=== PATIENT | female | born 1960 | race Two or more races ===

== ENCOUNTER 2024-03-26 04:42 | Emergency (ER) | payer OTHER ==
[~2024-03-26] VITALS: Ht 160 cm; Wt 95.3 kg
[2024-03-26 05:38] LABS: BASOPHILS # (AUTO) 0.2 K/uL (0.0-0.2); BASOPHILS % (AUTO) 1.3 % (0.0-2.0); EOSINOPHILS # (AUTO) 0.3 K/uL (0.0-0.7); HEMATOCRIT 41 % (33-45); HEMOGLOBIN 13.9 g/dL (11.5-14.8); LYMPHOCYTES # (AUTO) 2.5 K/uL (0.8-4.8); LYMPHOCYTES % (AUTO) 19.2 % (20.0-44.0); MEAN CORPUSCULAR HEMOGLOBIN 30 PG (26.0-33.0); MEAN CORPUSCULAR HGB CONC 34 g/dl (31.0-36.0); MEAN CORPUSCULAR VOLUME 89 fL (82-100); NEUTROPHILS # (AUTO) 8.9 K/uL (1.8-8.9); NEUTROPHILS % (AUTO) 69.5 % (43.0-81.0); PLATELET COUNT (AUTO) 231 K/uL (150-450); RED BLOOD CELL COUNT(AUTO) 4.56 MIL/uL (4.0-5.2); RED CELL DISTRIBUTION WIDTH 13.4 % (11.5-15.0); WHITE BLOOD COUNT (AUTO) 12.8 K/uL (4.3-11.0)
[2024-03-26 05:42] VITALS: O2SAT 95
[2024-03-26] MEDS: ALBUTEROL FS 2.5 MG/0.5 ML VIAL.NEB NEB ONE (05:42)
[2024-03-26] MEDS ORDERED: ALBUTEROL FS 2.5 MG/3 ML VIAL.NEB ONE ×2 (05:51→07:08)
[2024-03-26 05:52] LABS: CREATININE 0.9 mg/dL (0.6-1.3)
[2024-03-26 05:57] VITALS: O2SAT 98
[2024-03-26 06:04] LABS: LACTIC ACID 1.8 mmol/L (0.4-2.0)
[2024-03-26 06:06] LABS: CALCIUM, SERUM 8.5 mg/dL (8.5-10.1)
[2024-03-26] MEDS: methylPREDNISolone SOD SUCC 125 MG/2ML VIAL IV ONE (06:55)
[2024-03-26] MEDS ORDERED: methylPREDNISolone SOD SUCC 125 MG/2ML VIAL ONE (06:57)
[2024-03-26] MEDS ORDERED: IPRATROPIUM NEB FS 0.5 MG/2.5 ML AMPUL.NEB ONE (07:08)
[2024-03-26 07:13] VITALS: O2SAT 95
[2024-03-26] MEDS: IPRATROPIUM NEB FS 0.5 MG/2.5 ML AMPUL.NEB NEB ONE (07:13)
[2024-03-26] MEDS: ALBUTEROL FS 2.5 MG/3 ML VIAL.NEB CONTNEB ONE (07:13)
[2024-03-26 08:13] VITALS: O2SAT 94
[2024-03-26] MEDS ORDERED: IBUP-1955 PO (09:09)
[2024-03-26] MEDS ORDERED: BENZ-13 PO (09:09)
[2024-03-26 10:55] VITALS: BP 137/68; TEMP 98.4; O2SAT 98
== END 2024-03-26 10:56 | disposition home or self-care (01) ==
LOC: ER 05:10
DX: J45.901 Unspecified asthma with (acute) exacerbation (principal); I10 Essential (primary) hypertension; J06.9 Acute upper respiratory infection, unspecified; R05.9 Cough, unspecified; E11.9 Type 2 diabetes mellitus without complications; E78.5 Hyperlipidemia, unspecified; I44.4 Left anterior fascicular block; Z79.2 Long term (current) use of antibiotics; Z60.2 Problems related to living alone; Z20.822 Contact with and (suspected) exposure to COVID-19
CPT/HCPCS: 99285; 96374; 71045; 87426; 93005; 87804 ×2; 84145; 85025; 80048; 87040 ×2; 83605; 36415; 94640; 94644; J2919